=== PATIENT | male | born 1970 | race African-American/Black ===

== ENCOUNTER 2022-09-11 02:49 | Emergency (ER) | payer MEDICAID, OTHER ==
[~2022-09-11] VITALS: Ht 172.7 cm; Wt 82.0 kg
[2022-09-11] MEDS ORDERED: IBUPROFEN 600MG TABLET PO STA (03:39)
[2022-09-11] MEDS ORDERED: LORAZEPAM 1MG TABLET PO STA (03:39)
[2022-09-11] MEDS ORDERED: NAPR-681 PO (04:11)
[2022-09-11 04:35] VITALS: BP 120/88
== END 2022-09-11 04:30 | disposition home or self-care (01) ==
LOC: ER 02:49
DX: M25.562 Pain in left knee (principal); F41.9 Anxiety disorder, unspecified; Z88.6 Allergy status to analgesic agent
CPT/HCPCS: 99283